=== PATIENT | female | born 1960 | race Asian ===

== ENCOUNTER 2020-05-24 16:12 | Emergency (ER) | payer OTHER | END 2020-05-24 17:50 | disposition home or self-care (01) | LOC: JVIRT 16:12 | DX: Z11.59 Encounter for screening for other viral diseases (principal) | CPT/HCPCS: C9803; G2012-GT; Q3014-GT; U0003 ==

== ENCOUNTER 2020-05-28 10:27 | Emergency (ER) | payer OTHER ==
--- NOTE | 2020-05-28 10:55 | TELE ---
HPI Do you have fever,cough or shortness of breath?: No - General Reason For Visit: COVID 19 TESTING History Source: Patient Exam Limitations: No Limitations - History of Present Illness Associated Symptoms: reports: denies symptoms 05/28/20 10:46 Patient requesting testing for covid 19 for upcoming travel to [facility] on May 31, 2020. Patient has no complaints including headache, fever, chills shortness of breath or chest pain. Patient was swabbed 3 days ago and did not understand that it had to be 72 hours prior to travel. Patient denies medical history or recent illness. - Medical Decision Making 05/28/20 10:54 CC: Pt requesting covid testing 72 hrs prior to travel to [facility] Exam: appears healthy overall Plan: testing ordered Discharge Diagnosis at time of Disposition: Counseled about COVID-19 virus infection - Referrals - Patient Instructions - Discharge Disposition: HOME Condition at time of Disposition: Good
== END 2020-05-28 10:57 | disposition home or self-care (01) ==
LOC: JVIRT 10:27
DX: Z11.59 Encounter for screening for other viral diseases (principal)
CPT/HCPCS: Q3014-GT; U0003